=== PATIENT | female | born 1960 | race Caucasian/White ===

== ENCOUNTER 2016-09-30 10:18 | Emergency (ER) | payer OTHER ==
[~2016-09-30] VITALS: Ht 165.1 cm; Wt 108.2 kg
[2016-09-30 10:20] VITALS: BP 130/58; PULSE 112; RESP 18; O2SAT 95
--- NOTE | 2016-09-30 10:22 | ED.REPORT ---
HPI-General Illness Date of Service Sep 30, 2016 ED Provider: MD Narda This is a 56 year old female brought to the ED by EMS from urgent care for atrial fibrillation. Pt visited urgent care for dyspnea that began 2 weeks ago. Associated symptoms include wheezing. Denies chest pain, palpitations, nausea, vomiting, fever, abdominal pain, dizziness, lightheadedness, or change LOC. ECG at urgent care indicated a-fib, she was subsequently sent to the ED, pt has not been evaluated for atrial fibrillation in the past. Pt given ASA at urgent care. Nursing Notes Stated Complaint: A-FIB Chief Complaint: Dysrhythmia/Cardiac Nursing Notes Reviewed: Yes Allergies: Coded Allergies: metformin (Verified Allergy, Unknown, 09/30/16) glimepiride (Verified Adverse Reaction, Unknown, 09/30/16) rosiglitazone (Verified Adverse Reaction, Unknown, 09/30/16) Uncoded Allergies: MALEATE (Allergy, Unknown, 09/30/16) General Time Seen by MD: 10:22 Chief Complaint Other Hx Obtained From: Patient Arrived By: Walk-in Sudden in Onset?: Yes Onset Occurred: Just prior to arrival Symptom Duration: Since onset Severity: Current: No pain currently Pertinent Negative: Pt denies other symptoms Recent Healthcare: No recent doctor visit, No recent hospitalization Similar Sx Previous: No Past Medical History Past Medical History Denies Past Surgical History Denies Ambulatory Status Independent Review of Systems Full Review of Systems Constitutional: Denies: Chills, Fever Cardiovascular: Reports: Palpitations, Denies: Chest pain GI: Denies: Abdominal pain, Nausea, Vomiting Neurologic: Denies: Headache Complete sys rev & neg: except as marked. Physical Exam Vital Signs Vital Signs Date Time Temp Pulse Resp B/P Pulse Ox O2 Delivery O2 Flow Rate FiO2 09/30/16 11:26 85 108/57 95 Nasal Cannula 2 09/30/16 11:19 128 17 129/90 95 Nasal Cannula 2 09/30/16 10:20 36.7 112 18 130/58 95 Room Air - Initial VS: Reviewed General/Constitutional: Well-developed, Well-nourished Head / Eyes: Atraumatic, Normocephalic, PERRL ENT: Mucous membranes moist, Conjunctiva normal, No scleral icterus Neck: Supple, Non-tender, Full range of motion Respiratory: Breath sounds normal, Clear to auscultation, No respiratory distress Abdomen / GI: Soft, Non-tender, No guarding, No rebound, No distention Extremities: Vascular intact, Neuro intact, No swelling, No tenderness Neurologic: Alert, Oriented, Nonfocal Psychiatric: Mood/affect normal, Behavior normal, Normal thought content Cardiovascular: Heart sounds NL, No murmurs Heart Rate / Rhythm: Positive: Tachycardia Skin: Warm, Dry Color / Condition: Positive: Erythema localized (patch on back) Interpretation & Diagnostics CHEST X-RAY ON 09/24/16 IMPRESSION: No acute cardiopulmonary disease process. Dictated by: Kira Wilder MD, PhD on 09/24/2016 at 9:29 Approved by: Kira Wilder MD, PhD on 09/24/2016 at 9:29 Lab Results Interpretation Result Diagram: 09/30/16 1025 09/30/16 1025 Test 09/30/16 10:25 White Blood Count 12.5th/mm3 (3.8-10.1) Red Blood Count 4.86mil/mm3 (3.90-5.20) Hemoglobin 13.1g/dL (12.0-15.6) Hematocrit 40.9% (35.0-46.0) Mean Corpuscular Volume 84.2fL (81-100) Mean Corpuscular Hemoglobin 27.0pg (27.0-35.0) Mean Corpuscular Hemoglobin Concent 32.0% (32.0-37.0) Red Cell Distribution Width 13.9% (12.3-15.4) Platelet Count 262bil/L (150-400) Neutrophils (%) (Auto) 66.5% (40-74) Lymphocytes (%) (Auto) 24.7% (14-46) Monocytes (%) (Auto) 7.9% (4-12) Eosinophils (%) (Auto) 0.5% (0-5) Basophils (%) (Auto) 0.2% (0-3) Sodium Level 135mEq/L (134-144) Potassium Level 4.4mEq/L (3.5-5.2) Chloride Level 98mEq/L (97-108) Carbon Dioxide Level 20mmol/L (18-29) Blood Urea Nitrogen 17mg/dL (6-24) Creatinine 0.82mg/dL (0.57-1.00) Estimat Glomerular Filtration Rate 103mL/min (>59) Glucose Level 233mg/dL (60-99) Calcium Level 9.2mg/dL (8.5-10.1) Magnesium Level 1.8mg/dL (1.6-2.6) Total Bilirubin 2.3mg/dL (0.0-1.2) Aspartate Amino Transf (AST/SGOT) 27U/L (0-50) Alanine Aminotransferase (ALT/SGPT) 26U/L (0-32) Alkaline Phosphatase 79U/L (25-150) Troponin T < 0.010ug/L (0.0-0.011) Total Protein 7.4g/dL (6.4-8.4) Albumin 3.8g/dL (3.4-5.0) ECG Interpretation ECG Interpretation: Atrial fibrillation at a rate of 127 Time: 10:41 Interpreted by: ED physician Re-Eval/Medical Decision Time of Eval: 12:39 Re-Evaluation/Progress Note: Re-checked, discussed plan for discharge and need for follow up, pt understands and agrees with plan, all questions addressed. Counseled Regarding: Diagnosis, Lab results, Need for follow-up, When/why to return to ED Discharge & Departure Primary Impression: Atrial fibrillation with RVR Disposition: Home Discharge Condition All VS Reviewed: Yes Condition: Stable Patient Instructions: Atrial Fibrillation (ED), Warfarin (By mouth) Additional Instructions: Begin taking diltiazem and warfarin as prescribed. Follow-up with your primary care provider and the dentist/owner for further evaluation, call today to schedule an appointment. You need to be seen by your primary care provider this Thursday for warfarin level check. Return to the emergency department for any new or worsening symptoms such as chest pain or shortness of breath. Referrals: Tammy Apple PA-C (PCP) Kenia Read MD Scribe Attestation Portions of this note were transcribed by Brittny Reno. I, Dr. Laboy personally performed the history, physical exam and medical decision-making; I reviewed and confirmed the accuracy of the information in the transcribed note. Signed by: genevieve Ji. 09/30/2016, 11:00. Dustin Laboy MD Sep 30, 2016 10:22 BRITTYN RENO Sep 30, 2016 10:24 Dustin Laboy MD Sep 30, 2016 10:22 BRITTNY RENO Sep 30, 2016 10:24
[2016-09-30] MEDS ORDERED: Diltiazem 5 mg/mL 5 mL Inj IVPUSH ONE ×2 (10:40→13:15)
[2016-09-30 10:41] LABS: BASOPHILS % (AUTO) 0.2 % (0-3); EOSINOPHILS % (AUTO) 0.5 % (0-5); MONOCYTES % (AUTO) 7.9 % (4-12); Mean Corpuscular Volume 84.2 fL (81-100); NEUTROPHILS % (AUTO) 66.5 % (40-74); Platelet Count 262 bil/L (150-400)
[2016-09-30 11:18] LABS: TROPONIN T < 0.010 ug/L (0.0-0.011)
[2016-09-30 11:19] VITALS: BP 129/90; PULSE 128; RESP 17; O2SAT 95
[2016-09-30 11:20] LABS: Magnesium 1.8 mg/dL (1.6-2.6)
[2016-09-30 11:26] VITALS: BP 108/57; PULSE 85; O2SAT 95
[2016-09-30] MEDS ORDERED: WARF5TAB7 PO (13:11)
[2016-09-30] MEDS ORDERED: DILT120C10 PO (13:11)
[2016-09-30 13:26] VITALS: BP 122/60; PULSE 81; RESP 19; O2SAT 85
[2016-09-30 13:37] VITALS: BP 122/60; PULSE 81; RESP 19; O2SAT 85
== END 2016-09-30 13:12 | disposition home or self-care (01) ==
LOC: SED 10:18
DX: I48.91 Unspecified atrial fibrillation (principal); Z88.8 Allergy status to other drugs, medicaments and biological substances